=== PATIENT | male | born 1950 | race Caucasian/White ===

== ENCOUNTER 2019-07-15 09:21 | Emergency (ER) | payer MEDICARE ==
--- OUTSIDE RECORDS SUMMARY | 2019-07-15 09:24 | XMS REPORT ---
:1950 Author Organization [facility] t Address [address] [place] [address] [address]. [address] [place] [address] Care Team Providers Name Role Phone Unavailable Unavailable Unavailable Problems This patient has no known problems. Allergies, Adverse Reactions, Alerts This patient has no known allergies or adverse reactions. Medications This patient has no known medications.
[2019-07-15] MEDS ORDERED: ALTEPLASE 2 MG/VIAL IV SCH (10:15)
[2019-07-15] MEDS ORDERED: WATER FOR INJ,STERILE 10 ML IV SCH (10:15)
--- NOTE | 2019-07-15 12:14 | EDPHYS ---
Physician Documentation [facility] Name: Bigg Rodriguez Age: 68 yrs Sex: Male : 1950 Arrival Date: 07/15/2019 Time: 09:24 Bed 7 Private MD: ED Physician Prateek Alfonso HPI: 07/14 09:55 This 68 yrs old Male presents to ER via Wheelchair with complaints of PICC jmm line problem. 09:55 Onset: The symptoms/episode began/occurred last night. This is a 68 year old male with jmm a history of chronic pain, COPD, hepatitis that presents to the ED with difficulty with his PICC line. Patient states last night having difficulty with flushing catheter. Patient states unable to flush today. . Historical: - Allergies: 09:37 No Known Allergies; em - PMHx: 09:37 Chronic pain; COPD; Hepatitis; resolved; em - PSHx: 09:37 back surgery; em 09:37 leg surgery; em - Immunization history:: Adult Immunizations. - Social history:: Smoking status: Patient/guardian denies using tobacco, Stopped _ months ago 6. ROS: 09:55 Constitutional: Negative for fever, chills, and weight loss, Cardiovascular: Negative jmm for chest pain, palpitations, and edema, Respiratory: Negative for shortness of breath, cough, wheezing, and pleuritic chest pain, Abdomen/GI: Negative for abdominal pain, nausea, vomiting, diarrhea, and constipation, Neuro: Negative for headache, weakness, numbness, tingling, and seizure. 09:55 All other systems are negative. Exam: 09:55 Constitutional: This is a well developed, well nourished patient who is awake, alert, jmm and in no acute distress. Head/Face: atraumatic. Eyes: EOMI, no conjunctival erythema appreciated ENT: Moist Mucus Membranes Neck: Trachea midline, Supple Chest/axilla: Normal chest wall appearance and motion. Cardiovascular: Regular rate and rhythm. No edema appreciated Respiratory: Normal respirations, no respiratory distress appreciated Abdomen/GI: Non distended, soft Back: Normal ROM Skin: General appearance color normal MS/ Extremity: Moves all extremities, no obvious deformities appreciated, no edema noted to the lower extremities Neuro: Awake and alert, normal gait Psych: Behavior is normal, Mood is normal, Patient is cooperative and pleasant Vital Signs: 09:33 BP 118 / 74; Pulse 91; Resp 18; Temp 97.3; Pulse Ox 100% on R/A; Weight 58.06 kg; em Height 6 ft. 0 in. (182.88 cm); Pain 0/10; 10:51 em 09:33 Body Mass Index 17.36 (58.06 kg, 182.88 cm) em 10:51 pt removed BP and SPO2 monitor em MDM: 09:55 Patient medically screened. aubrey Administered Medications: 10:33 Drug: Cathflo Activase 2 mg Route: IV Thrombolytics; em 12:06 Follow up: Response: No adverse reaction em Disposition: 07/15/19 12:13 Discharged to Home. Impression: Other specified complication of vascular prosthetic devices, implants and grafts. - Condition is Stable. - Discharge Instructions: PICC Home Guide. - Medication Reconciliation Form, Thank You Letter, Antibiotic Education, Prescription Opioid Use form. - Follow up: Private Physician; When: 2 - 3 days; Reason: Recheck today's complaints, Continuance of care, Re-evaluation by your physician. Signatures: Jaya Purvis PA PA jmm Munoz, Edgar, RN RN em Corrections: (The following items were deleted from the chart) 12:22 12:13 07/15/2019 12:13 Discharged to Home. Impression: Other specified complication of em vascular prosthetic devices, implants and grafts. Condition is Stable. Forms are Medication Reconciliation Form, Thank You Letter, Antibiotic Education, Prescription Opioid Use. Follow up: Private Physician; When: 2 - 3 days; Reason: Recheck today's complaints, Continuance of care, Re-evaluation by your physician. aubrey
--- NOTE | 2019-07-15 12:14 | ER ---
Nurse's Notes [facility] Name: Bigg Rodriguez Age: 68 yrs Sex: Male : 1950 Arrival Date: 07/15/2019 Time: 09:24 Bed 7 Private MD: Diagnosis: Other specified complication of vascular prosthetic devices, implants and grafts Presentation: 07/14 09:33 Chief complaint: Patient states: home health nurse changed PICC dressing last night, em after dressing change line would not flush or draw, pt had sx in june 25 2019 at [facility]. Coronavirus screen: Patient denies a cough. Patient denies shortness of breath or difficulty breathing. Patient denies measured and/or subjective temperature greater than 100.4F prior to today's visit. Patient denies travel on a cruise ship or to a country the [facility] currently lists as an affected area. Patient denies contact with known and/or suspected case of COVID-19. Ebola Screen: Patient negative for fever greater than or equal to 101.5 degrees Fahrenheit, and additional compatible Ebola Virus Disease symptoms Patient denies exposure to infectious person. Patient denies travel to an Ebola-affected area in the 21 days before illness onset. No symptoms or risks identified at this time. Initial Sepsis Screen: Does the patient meet any 2 criteria? HR > 90 bpm. No. Patient's initial sepsis screen is negative. Does the patient have a suspected source of infection? No. Patient's initial sepsis screen is negative. Risk Assessment: Do you want to hurt yourself or someone else? Patient reports no desire to harm self or others. Onset of symptoms was July 14, 2019. 09:33 Method Of Arrival: Wheelchair em 09:33 Acuity: JOSE 4 em Historical: - Allergies: 09:37 No Known Allergies; em - PMHx: 09:37 Chronic pain; COPD; Hepatitis; resolved; em - PSHx: 09:37 back surgery; em 09:37 leg surgery; em - Immunization history:: Adult Immunizations. - Social history:: Smoking status: Patient/guardian denies using tobacco, Stopped _ months ago 6. Screenin:32 Abuse screen: Denies threats or abuse. Denies injuries from another. Nutritional sv screening: No deficits noted. Tuberculosis screening: No symptoms or risk factors identified. Fall Risk None identified. Assessment: 09:30 General: Appears in no apparent distress. comfortable, Behavior is calm, cooperative, em appropriate for age, PICC line noted to right upper arm, extension tubing noted to PICC. Pain: Denies pain. Neuro: Level of Consciousness is awake, alert, obeys commands, Oriented to person, place, time, situation, Appropriate for age. Cardiovascular: Capillary refill < 3 seconds. Respiratory: Airway is patent Respiratory effort is even, unlabored, Respiratory pattern is regular, symmetrical. Derm: Skin is intact, is healthy with good turgor, Skin is pink, warm \T\ dry. Musculoskeletal: Capillary refill < 3 seconds, Range of motion: intact in all extremities. 09:45 Reassessment: flushed PICC line with 20 ml of NS in each catheter, mild/moderate em resistance, draws back very slowly, provider notified, pt wants staff to change dressing or try to unclog catheters so he doesn't have to get PICC line changed. 10:30 Reassessment: removed extension tubing that was added so pt can self-administer em medication, home health staff called and spoke with charge nurse and told staff that patient will need a replacement extension so he can administer medication. 10:50 Reassessment: pt states he will leave after this medication works or does not work, em states he does not have an hour to waste here. 11:35 Reassessment: unable to aspirate Cathflo or flush, PICC catheter noted to have kink at em the location of bio patch, removed old dressing, provider notified. 12:00 Reassessment: redressed PICC line, catheter kinked, provider at bedside, left PICC line em out about 3 cm, cleaned with aseptic technique, applied bio patch and sterile Tegaderm, flushes well and draws blood well, instructed to call home health nurse so pt can get extension set. Vital Signs: 09:33 BP 118 / 74; Pulse 91; Resp 18; Temp 97.3; Pulse Ox 100% on R/A; Weight 58.06 kg; em Height 6 ft. 0 in. (182.88 cm); Pain 0/10; 10:51 em 09:33 Body Mass Index 17.36 (58.06 kg, 182.88 cm) em 10:51 pt removed BP and SPO2 monitor em ED Course: 09:24 Patient arrived in ED. am2 09:26 Jaya Purvis PA is PHCP. [facility] 09:26 Prateek Alfonso MD is Attending Physician. [facility] 09:32 Arm band placed on Patient placed in an exam room. 09:32 Patient has correct armband on for positive identification. Bed in low position. Call light in reach. Pulse ox on. NIBP on. Door closed. Head of bed elevated. 09:33 Nurse Practitioner and/or Physician General Manager In Training to see patient. sv 09:33 Milton Wyatt, RN is Primary Nurse. em 09:36 Triage completed. em 12:21 No provider procedures requiring assistance completed. Patient did not have IV access em during this emergency room visit. Administered Medications: 10:33 Drug: Cathflo Activase 2 mg Route: IV Thrombolytics; em 12:06 Follow up: Response: No adverse reaction em Outcome: 12:13 Discharge ordered by MD. [facility] 12:21 Discharged to home via wheelchair. em 12:21 Condition: good 12:21 Discharge instructions given to patient, Instructed on discharge instructions, follow up and referral plans. Demonstrated understanding of instructions, follow-up care. 12:22 Patient left the ED. em Signatures: Radha Mukherjee RN RN Jaya Purvis PA PA [facility] Milton Wyatt, RN RN Ruby Trent am2 Corrections: (The following items were deleted from the chart) 12:21 12:00 Reassessment: redressed PICC line, catheter kinked, provider at bedside, left em PICC line out about 3 cm, cleaned with aseptic technique, applied bio patch and sterile Tegaderm, flushes well and draws blood well, instructed to call home health nurse so pt can get extension set em
[2019-07-15 12:28] VITALS: BP 118/74; TEMP 97.3; O2SAT 100
== END 2019-07-15 12:22 | disposition home or self-care (01) ==
LOC: ER 09:21
DX: T82.898A Other specified complication of vascular prosthetic devices, implants and grafts, initial encounter (principal); J44.9 Chronic obstructive pulmonary disease, unspecified; G89.29 Other chronic pain
CPT/HCPCS: 92977; 99291; 99292; J2997